=== PATIENT | male | born 1970 | race Caucasian/White ===

== ENCOUNTER 2024-01-04 19:15 | Emergency (ER) | payer BC, SELFPAY ==
[2024-01-04 19:17] VITALS: BP 135/95; BMI 27.5
--- NOTE | 2024-01-04 19:40 | ED.GENMED ---
History of Present Illness
General
Chief Complaint: Skin Surface Trauma
Source: patient
Exam Limitations: none
Time Seen by Provider: 01/04/24 19:30
Travel History
Have you had any contact with someone who has COVID-19?: No
Do you have any symptoms of coronavirus? Fever > 100 degrees, chills, cough, shortness of breath, sore throat, loss of taste or smell, muscle aches, or headache?: No
History of Present Illness
History of Present Illness:
See MDM
Past History
Past History
ED Past Medical History: Hypercholesterolemia and Other (Low back pain, spinal lumbar fusion)
ED Past Surgical History: Orthopedic (Laminectomy and lumbar fusion)
Social History
Tobacco: Non-smoker
Alcohol: Occasional
Personal:
Living: with family
Employment: Employed
Family History
Family History: Other
Phy Exam
Physical Exam
Physical Exam:
See MDM
Course
Orders/Labs/Results
Orders:
Orders
01/04/24 19:38
Finger(s)/Thumb 2 View Lt [CR Finger(s)/thumb Min 2 Vw Lt] Urgent
Comment:
Reason For Exam: distal index finger injury
Indicate Which Finger:: Index Finger
Vital Signs
Initial and Last Documented VS:
Initial Vital Signs
Temp Pulse Resp BP Pulse Ox
98.4 F 85 16 135/95 99
01/04/24 19:17 01/04/24 19:17 01/04/24 19:17 01/04/24 19:17 01/04/24 19:17
Last Documented Vital Signs
Temp Pulse Resp BP Pulse Ox
98.4 F 85 16 135/95 99
01/04/24 19:17 01/04/24 19:17 01/04/24 19:17 01/04/24 19:17 01/04/24 19:17
Procedures
Laceration Closure
Left Distal Radial Second Finger:
Status of Wound: clean
Size of Wound in cm: 0.5 (x2)
Description of Wound Edges: sharp
Preparation: cleaned with Betadine
Revision/Debridement: routine- no revision
Type of Closure: single layer closure and Dermabond-skin glue
MDM/Problems Addressed
Differential Diagnosis Includes:
HPI and MDM Narrative:
53-year-old male presenting with left index finger injury. Patient was using a clean saw and he was trying to saw a dog bone before his dog. It slipped and he stuck his left index finger. Patient is unsure if he cut it or punctured it. He states
his tetanus is up-to-date. Denies numbness or wound.
On exam, patient has 2 superficial lacerations to left index finger distally along radial side. No ligamentous involvement. Sensation intact. Cap refill less than 2 seconds. Dermabond placed. Will obtain x-ray to rule out fracture
Physical exam
General: Well appearing and non-toxic
HEENT: protecting airway
Neck: appears supple
CV: No evidence of cyanosis
Resp: No accessory muscle use
Abd: Non-distended
Extremities: 2 superficial subcentimeter lacerations to left index finger distally along radial side. No ligamentous involvement. Sensation intact. Cap refill less than 2 seconds.
Neuro: alert
Psych: Normal affect
Skin: Intact
Problems Addressed including Acute and Chronic Conditions affecting care:
1. Finger laceration
Acuity: acute
Prognosis: stable
Details: Dermabond placed.
Updates
X-ray negative for fracture. Discussed return precautions
Differential Diagnosis (but not limited to): Laceration, contusion, fracture
Drug therapy (if applicable): OTC meds, please see d/c instruction regarding Rx drugs
Amount and/or Complexity of Data Reviewed
Clinical info obtained from: Patient
External data reviewed: N/A
Labs I independently reviewed (but not limited to): N/A
Radiology: X-ray independently reviewed: No fracture noted on finger x-ray
Pulse Ox: not hypoxic
EKG independently reviewed: N/A
Waiter/Waitress Cafeteria: N/A
Critical Care: N/A
Risk of Complication:
Social Determinants of health: Good social support
Discussed with other providers: N/A
Escalation of Care includes Admit/Obs: After being observed in the Emergency Department, pt stable for discharge.
Occasional wrong word or 'sound a like' substitutions may have occurred due to the inherent limitations of voice recognition software. Read the chart carefully and recognize, using context, where substitutions have occurred.
*Critical Care Note
Total Time (30-74mins, 75-104mins- exclusive of procedures): Not Applicable
ED Attending Note
-
Portions of this chart may have been created with voice recognition software.� Occasional wrong word or��sound alike� substitutions may have occurred due to the inherent limitations of voice recognition software.
Discharge Plan
Departure
Patient Disposition: Home (Routine Discharge)
Date of Disposition: 01/04/24
Time of Disposition: 20:15
Patient with high blood pressure during this ER visit?: No
Discharge Problem:
Finger laceration
Instructions: Laceration Repair With Glue (DC)
Prescriptions:
No Action
atorvastatin 10 MG tablet
10 mg PO QPM
hydrocodone-acetaminophen 1 TABLET tablet
1 tab PO Q4HPRN PRN (Reason: pain) Qty: 10 0RF
diazepam 5 MG tablet
5 mg PO TIDPRN PRN (Reason: Pain, spasm) Qty: 12 0RF
naproxen sodium [Aleve] 220 MG tablet
220 mg PO PRN PRN (Reason: as directed)
hydrocodone-acetaminophen [[place]] 1 EACH tablet
1 ea PO Q6 Qty: 10 0RF
prednisone 50 MG tablet
50 mg PO Daily Qty: 4 0RF
diazepam 5 MG tablet
5 mg PO TIDPRN PRN (Reason: Pain, spasm) Qty: 15 0RF
prednisone 50 MG tablet
50 mg PO DAILY Qty: 5 0RF
cyclobenzaprine 10 MG tablet
10 mg PO TIDPRN PRN (Reason: pain/spasm) Qty: 12 0RF
prednisone 10 mg Tablet
See Rx Instructions .ROUTE .COMPLEX Qty: 30 0RF
Rx Instructions:
Take By Mouth:
40 mg daily x3 days, 30 mg daily x3 days,
20 mg daily x3 days, 10 mg daily x3 days.
prednisone 10 mg Tablet
See Rx Instructions .ROUTE .COMPLEX Qty: 45 0RF
Rx Instructions:
Take By Mouth:
50 mg daily x3 days, 40 mg daily x3 days,
30 mg daily x3 days, 20 mg daily x3 days,
10 mg daily x3 days
diazepam 5 mg tablet
5 mg PO TID PRN (Reason: muscle spasm) Qty: 10 0RF
Activity Restrictions/Additional Instructions:
Your wound was fixed with derma-jeffers. This is a special glue that holds a wound closed similar to stitches. This type of wound closure will eventually fall off by itself and does not need to be removed. You may wash the area very gently, but do not
scrub or pick at the glue. Watch for signs of infection: fever over 100.5�, increasing pain, red streaks around wound, swelling, drainage of pus, or bad smell. If any of these happen, return to ED promptly. All wounds may scar, however you may
reduce the appearance of scarring by avoiding sun exposure to the scar and applying skin moisturizer with spf protection to the scar once the wound is healed.
Interventions
Interventions:
*Risk Screen - Suicide Last Done: 01/04/24 19:17
*Neglect/Abuse Screening Last Done: 01/04/24 19:17
*ED COVID-19 Vaccine History Last Done: 01/04/24 19:17
ED-Skin Assessment Last Done: 01/04/24 19:45
== END 2024-01-04 20:22 | disposition home or self-care (01) ==
LOC: EMR 19:15
PROVIDERS: EMERGENCY PHYSICIAN Student in an Organized Health Care Education/Training Program; FAMILY PHYSICIAN Internal Medicine
DX: S61.211A Laceration without foreign body of left index finger without damage to nail, initial encounter (principal); W27.0XXA Contact with workbench tool, initial encounter
CPT/HCPCS: 99283; 12001; 73140

== ENCOUNTER 2024-02-27 11:30 | Emergency (ER) | payer BC, SELFPAY ==
[2024-02-27 11:38] VITALS: BP 122/77
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
[2024-02-27] MEDS: TORADOL 15 MG IV (13:04)
[2024-02-27] MEDS: VALIUM INJECTION 5 MG IV (13:04)
[2024-02-27] MEDS: DELTASONE 50 MG PO (13:04)
[2024-02-27 13:13] VITALS: BP 121/87
== END 2024-02-27 15:01 | disposition home or self-care (01) ==
LOC: EMR 11:30
PROVIDERS: EMERGENCY PHYSICIAN Emergency Medicine; FAMILY PHYSICIAN Internal Medicine
DX: M54.50 Low back pain, unspecified (principal); E78.00 Pure hypercholesterolemia, unspecified
CPT/HCPCS: 99282; 96374; 96375

== ENCOUNTER 2024-06-14 08:53 | Emergency (ER) | payer BC, SELFPAY ==
[2024-06-14 08:55] VITALS: BP 141/85
--- NOTE | 2024-06-14 09:51 | ED.GENMED ---
History of Present Illness
General
Chief Complaint: Musculo-Skeletal Complaint
Source: patient and spouse
Exam Limitations: none
Time Seen by Provider: 06/14/24 09:05
Nursing documentation reviewed up to this point in time: agreed with
History of Present Illness
History of Present Illness:
54-year-old male past medical history of hyperlipidemia multiple lower extremity injuries in the past presented to the emergency department with left-sided ankle over the past few days felt somewhat sharp sensation. 4 days ago pain gradually
worsening now made worse with ambulation and weightbearing. Denies any numbness weakness redness or warmth
Past History
Past History
ED Past Medical History: Hypercholesterolemia and Other (Low back pain, spinal lumbar fusion)
ED Past Surgical History: Orthopedic (Laminectomy and lumbar fusion)
Social History
Tobacco: Non-smoker
Alcohol: Occasional
Personal:
Living: with family
Employment: Employed
Family History
Family History: Other
Review of Systems
Review of Systems
Allergies reviewed?: Yes
All Other Systems: ROS reviewed and negative except as documented in HPI and ROS
Phy Exam
Physical Exam
Physical Exam:
GENERAL: Alert , in no apparent distress
EYE: pupils equal and reactive
NECK: Supple, no significant adenopathy.
ENT: o/p clr, mmm.
CARDIAC: Regular rate and rhythm .
LUNGS: Clear breath sounds bilaterally, no acute respiratory distress, no wheezes/rales/rhonchi
ABDOMEN: Soft, without focal tenderness, no r/g, no cvat
NEUROLOGICAL: Alert and oriented, no focal neuro deficits
SKIN: Warm and dry, skin intact.
MUSCULOSKELETAL: Mild discomfort to the left ankle at the lateral malleolus mainly to the posterior aspect of this made worse with eversion of the ankle Achilles tendon is intact with normal Aguirre squeeze test. No joint laxity normal distal
pulses no redness or warmth no edema, well perfused.
PSYCH: Normal and appropriate interaction.
Course
Orders/Labs/Results
Orders:
Orders
06/14/24 09:17
Crutches-Treatment ONCE
Ankle, left 3 view CR [CR Ankle - Left Min 3 Views ] Urgent
Comment:
Reason For Exam: left ankle pain
Vital Signs
Initial and Last Documented VS:
Initial Vital Signs
Temp Pulse Resp BP Pulse Ox
98.2 F 83 16 141/85 98
06/14/24 08:55 06/14/24 08:55 06/14/24 08:55 06/14/24 08:55 06/14/24 08:55
Last Documented Vital Signs
Temp Pulse Resp BP Pulse Ox
98.2 F 83 16 141/85 98
06/14/24 08:55 06/14/24 08:55 06/14/24 08:55 06/14/24 08:55 06/14/24 08:55
MDM/Problems Addressed
MDM/Problems Addressed:
54-year-old male presenting to the emergency department today with concerns of left-sided ankle discomfort mainly to the left lateral malleolus and the posterior aspect. She felt a somewhat sharp pain a few days ago has had gradual worsening since
associate with weightbearing and ambulation. Symptoms seem from the description most likely consistent with soft tissue injury or tendon injury. X-ray performed without acute abnormalities. Patient with likely soft tissue injury plan for close
follow-up with orthopedics but otherwise advised for rest ice compression and elevation. Return precautions given.
*Critical Care Note
Total Time (30-74mins, 75-104mins- exclusive of procedures): Not Applicable
ED Attending Note
-
Portions of this chart may have been created with voice recognition software.� Occasional wrong word or��sound alike� substitutions may have occurred due to the inherent limitations of voice recognition software.
Discharge Plan
Departure
Patient Disposition: Home (Routine Discharge)
Date of Disposition: 06/14/24
Time of Disposition: 10:31
Patient with high blood pressure during this ER visit?: No
Condition: Good
Covid-19: Not Applicable
Discharge Problem:
Acute left ankle pain
Instructions: Sprain (DC)
Prescriptions:
No Action
atorvastatin 10 MG tablet
10 mg PO QPM
hydrocodone-acetaminophen 1 TABLET tablet
1 tab PO Q4HPRN PRN (Reason: pain) Qty: 10 0RF
diazepam 5 MG tablet
5 mg PO TIDPRN PRN (Reason: Pain, spasm) Qty: 12 0RF
naproxen sodium [Aleve] 220 MG tablet
220 mg PO PRN PRN (Reason: as directed)
hydrocodone-acetaminophen [[place]] 1 EACH tablet
1 ea PO Q6 Qty: 10 0RF
prednisone 50 MG tablet
50 mg PO Daily Qty: 4 0RF
diazepam 5 MG tablet
5 mg PO TIDPRN PRN (Reason: Pain, spasm) Qty: 15 0RF
prednisone 50 MG tablet
50 mg PO DAILY Qty: 5 0RF
cyclobenzaprine 10 MG tablet
10 mg PO TIDPRN PRN (Reason: pain/spasm) Qty: 12 0RF
prednisone 10 mg Tablet
See Rx Instructions .ROUTE .COMPLEX Qty: 30 0RF
Rx Instructions:
Take By Mouth:
40 mg daily x3 days, 30 mg daily x3 days,
20 mg daily x3 days, 10 mg daily x3 days.
prednisone 10 mg Tablet
See Rx Instructions .ROUTE .COMPLEX Qty: 45 0RF
Rx Instructions:
Take By Mouth:
50 mg daily x3 days, 40 mg daily x3 days,
30 mg daily x3 days, 20 mg daily x3 days,
10 mg daily x3 days
diazepam 5 mg tablet
5 mg PO TID PRN (Reason: muscle spasm) Qty: 10 0RF
prednisone 50 mg tablet
50 mg PO DAILY Qty: 5 0RF
Referrals:
Doroteo Rendon MD [Family Provider] -
Activity Restrictions/Additional Instructions:
You came to the emergency department today with concerns of left-sided ankle discomfort. This seems most consistent with a soft tissue injury potentially tendon injury. The hope is that this improves over time with appropriate rest and gradual
increase in activity. If symptoms are ongoing you should seek physical therapy assessment as well as orthopedic assessment. Return to the emergency department for any worsening, new or concerning symptoms.
Interventions
Interventions:
*Risk Screen - Suicide Last Done: 06/14/24 09:28
*Neglect/Abuse Screening Last Done: 06/14/24 09:28
ED-Musculoskeletal Assessment Last Done: 06/14/24 09:27
Discharge Date and Time
Print Language: [id number]
== END 2024-06-14 10:52 | disposition home or self-care (01) ==
LOC: EMR 08:53
PROVIDERS: EMERGENCY PHYSICIAN Emergency Medicine; FAMILY PHYSICIAN Internal Medicine
DX: M25.572 Pain in left ankle and joints of left foot (principal); E78.00 Pure hypercholesterolemia, unspecified
CPT/HCPCS: 99283; 73610

== ENCOUNTER 2024-09-25 19:14 | Observation (INO) | payer BC, SELFPAY ==
[2024-09-25] VITALS (22 sets, daily range): BP systolic 69–132; BP diastolic 41–80; PULSE 58–137; BMI 26.7
[2024-09-25 12:46] LABS: % Basophils 0.3 % (0-2); % Eosinophils 2.1 % (0-6); % Immature Granulocytes 0.5 % (0-0.5); % Lymphocytes 10.3 % (20.5-51.1); % Monocytes 10.7 % (1.7-9.3); % Neutrophils 76.1 % (42.2-75.2); Absolute Eosinophils 0.2 10^3/uL (0-0.7); Absolute Lymphocytes 0.8 10^3/uL (1.2-3.4); Absolute Monocytes 0.8 10^3/uL (0.1-0.6); Absolute Neutrophils 5.5 10^3/uL (1.4-6.5); Hematocrit 43.1 % (39.0-52.0); Hemoglobin 14.1 g/dL (13.0-18.0); Mean Corp Hgb Conc. 32.7 g/dL (33.0-37.0); Mean Corpuscular Hgb 31.4 pg (27.0-31.0); Mean Platelet Volume 9.5 fL (7.4-10.4); Nucleated Red Blood Cells % 0 % (-); Platelet Count 156 10^3/uL (130-400); Red Blood Cell Count 4.49 10^6/uL (4.70-6.10); Red Cell Dist. Width 12.7 % (11.5-14.5); White Blood Cell Count 7.3 10^3/uL (4.8-10.8)
[2024-09-25] MEDS: NSS 1000 IV ×2 (13:01→22:41)
[2024-09-25 13:03] LABS: ALT (SGPT) 46 U/L (0-50); AST (SGOT) 39 U/L (17-59); Albumin 4.5 g/dl (3.5-5.0); Alkaline Phosphatase 61 U/L (38-126); Blood Urea Nitrogen 22 mg/dl (9-20); Calcium 8.7 mg/dl (8.4-10.2); Carbon Dioxide 28 mmol/L (22-30); Chloride 102 mmol/L (98-107); Estimated Creatinine Clearance 86 ml/min; Glucose 101 mg/dl (70-99); Potassium 4.1 mmol/L (3.5-5.1); Sodium 138 mmol/L (135-145); Total Bilirubin 0.6 mg/dl (0.2-1.3); Total Protein 6.7 g/dl (6.3-8.2); eGFR > 60.00
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
[2024-09-25 15:38] LABS: D-Dimer 0.61 ug/mlFEU (0.00-0.50)
[2024-09-25] MEDS: ZITHROMAX 500 MG PO (18:43)
[2024-09-25] MEDS: TYLENOL 1000 MG PO (18:43)
[2024-09-25] MEDS: ROCEPHIN 1000 MG IV (18:44)
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
[2024-09-25 20:14] LABS: COVID-19 Antigen Negative (Negative)
[2024-09-25] MEDS: MUCINEX 600 MG PO (22:42)
[2024-09-25] MEDS: MOTRIN 400 MG PO (22:42)
[2024-09-25] MEDS: CRESTOR 20 MG PO (22:42)
[2024-09-25] MEDS: HEPARIN 5000 UNITS SC (22:42)
[2024-09-25] MEDS: OCEAN, SALINE MIST 50 SPRAYS NASAL (23:47)
[2024-09-26] VITALS: BMI 29.0
[2024-09-26 02:50] VITALS: BP 115/51
[2024-09-26 07:00] VITALS: BP 116/60
[2024-09-26 08:06] LABS: % Basophils 0.6 % (0-2); % Immature Granulocytes 0.4 % (0-0.5); % Lymphocytes 28.3 % (20.5-51.1); % Monocytes 12.7 % (1.7-9.3); Absolute Eosinophils 0.2 10^3/uL (0-0.7); Absolute Lymphocytes 1.4 10^3/uL (1.2-3.4); Absolute Monocytes 0.6 10^3/uL (0.1-0.6); Absolute Neutrophils 2.6 10^3/uL (1.4-6.5); Hematocrit 38.9 % (39.0-52.0); Hemoglobin 12.7 g/dL (13.0-18.0); Mean Corp Hgb Conc. 32.6 g/dL (33.0-37.0); Mean Corpuscular Hgb 31.6 pg (27.0-31.0); Mean Corpuscular Volume 96.8 fL (80.0-94.0); Mean Platelet Volume 10.3 fL (7.4-10.4); Nucleated Red Blood Cells % 0 % (-); Platelet Count 147 10^3/uL (130-400); Red Blood Cell Count 4.02 10^6/uL (4.70-6.10); Red Cell Dist. Width 12.9 % (11.5-14.5); White Blood Cell Count 4.8 10^3/uL (4.8-10.8)
[2024-09-26 08:25] LABS: ALT (SGPT) 38 U/L (0-50); AST (SGOT) 32 U/L (17-59); Albumin 3.5 g/dl (3.5-5.0); Alkaline Phosphatase 53 U/L (38-126); Blood Urea Nitrogen 17 mg/dl (9-20); Calcium 8.1 mg/dl (8.4-10.2); Carbon Dioxide 26 mmol/L (22-30); Chloride 108 mmol/L (98-107); Estimated Creatinine Clearance 95 ml/min; Glucose 91 mg/dl (70-99); Potassium 4.1 mmol/L (3.5-5.1); Sodium 140 mmol/L (135-145); Total Bilirubin 0.5 mg/dl (0.2-1.3); Total Protein 5.5 g/dl (6.3-8.2); eGFR > 60.00
[2024-09-26] MEDS: THERAGRAN 1 TABLET PO (08:32)
[2024-09-26] MEDS: HEPARIN 5000 UNITS SC (08:32)
[2024-09-26] MEDS: TYLENOL 650 MG PO (08:33)
[2024-09-26] MEDS: NSS 1000 IV (08:34)
--- NOTE | 2024-09-26 11:52 | W.PN.HOSP.TC ---
Today's Communication/Plan
-
Repeat orthostatic vitals, DC if asymptomatic
Transition to oral Augmentin to complete 7 days
Outpatient follow-up with PCP
Assessment / Plan
Assessment / Plan
#Syncopal episode secondary to orthostatic hypotension
#Orthostatic hypotension secondary to viral URI versus pneumonia
-Orthostasis despite 2 L of IV fluids, symptomatically has improved
-Chest x-ray cannot exclude some minor patchy left basilar opacity such as subsegmental atelectasis/pneumonia
-CT PE study without evidence of pulmonary emboli, redemonstrated signs of left lower lobe pneumonia
-As of this morning is asymptomatic with positional changes
-Repeat orthostats today, plan to DC if remains asymptomatic
#Left lower lobe CAP
-Likely bacterial pneumonia, postviral
-Was started on ceftriaxone and azithromycin upon arrival
-No leukocytosis, no fevers, not requiring any oxygen
-Appears nontoxic, likely very low curb 65 score
-Will transition to Augmentin for outpatient therapy, complete 7 days of antibiotic
#Chronic back pain status post spinal fusion/laminectomy
-Continue as needed diazepam
#Hyperlipidemia
-Continue statin
#Obesity
-on saxendra
Full code
DVT prophylaxis�heparin
Regular diet
Anticipated Discharge: Within 24 hours
Subjective/Interval History
-
Date of Service: September 26, 2024
Seen and examined at the bedside. No acute events reported overnight. AFVSS this morning
Orthostatic vital signs were positive. States he symptomatically feels better today. 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
Denies any acute complaints. Asks if he can go home
Objective Data
-
Labs:
Laboratory Results
09/26/24
07:24
WBC 4.8
Hgb 12.7 L
Hct 38.9 L
Plt Count 147
Sodium 140
Potassium 4.1
Chloride 108 H
Carbon Dioxide 26
BUN 17
Creatinine 0.9
Glucose 91
Calcium 8.1 L
Total Bilirubin 0.5
AST 32
ALT 38
Alkaline Phosphatase 53
Vital Signs:
Vital Signs
Temp Pulse Resp BP Pulse Ox
97.9 F 73 18 116/60 96
09/26/24 07:00 09/26/24 07:00 09/26/24 07:00 09/26/24 07:00 09/26/24 07:00
Review of Systems
-
History Source: Patient
All other systems: Reviewed and negative
Physical Exam
-
General: Well Developed, Well Nourished, No Apparent Distress and Comfortable
HEENT: Normocephalic, Atraumatic, Moist Mucous Membranes and Anicteric
Respiratory: Clear to Auscultation and Non Labored Respirations; Negative Wheezes, Rales, Rhonchi or Accessory Resp Muscle Use
Cardiac: Regular Rhythm and S1/S2; Negative Murmur, Rub or Gallop
GI: Soft, Nontender, Nondistended and Normal Bowel Sounds
Musculoskeletal: No Clubbing, No Cyanosis and No Edema
Skin: Warm, Dry and Normal Turgor; Negative Rash
Neuro: AO x 3, Nonfocal/Grossly Intact and Central Nerve's Intact; Negative Tremors
Psych: Calm
Data Reviewed
-
Labs: Labs Reviewed by me and Discussed with Patient
[2024-09-26 12:00] VITALS: BP 130/71
[2024-09-26 12:16] VITALS: BP 124/76; BP 127/76; BP 130/71; PULSE 65; PULSE 72; PULSE 80
--- NOTE | 2024-09-26 13:09 | CM ---
lands resource manager reviewed patient's chart and patient was admitted under OBS, OBS letter explained and signed, patient lives with spouse in a multilevel home, patient is independent with adl's and ambulation, no dme, patient works plan is for discharge
to home to day.
Plan; Home today no needs.
PCP: Dr. Rendon
Pharmacy [facility] on [address] [facility] in [place]
Plan; Home when stable, no needs.
--- NOTE | 2024-09-26 15:49 | W.DCSUMMARY ---
Discharge Summary
Discharge Data
Date of Admission: 09/25/24
Date of Discharge: 09/26/24
-
Pending Results: No
Hospital Course
54-year-old male with chronic back pain s/p laminectomy, hyperlipidemia, marijuana use scented to the hospital after syncopal episode at home. Had been dealing with upper respiratory symptoms for 1 week prior to arrival to the ED. Stood up and
developed lightheadedness with syncope while using the restroom. Denied head strike. Upon arrival orthostatic vitals were positive and he was symptomatic. Chest x-ray showed left basilar opacity. CT chest redemonstrated opacification in the left
lower lobe with radiographic findings consistent with pneumonia. No fevers or leukocytosis. Did not require supplemental oxygen during hospital stay. Was at high risk for developing bacterial pneumonia due to recent URI. Risk benefits discussion
had with patient and decision was made to treat with antibiotics. He received IV ceftriaxone and azithromycin here. Transition to Augmentin to complete 7 days of discharge. He received 2 L of IV fluids while in the ED, orthostatic vital signs
negative on day 2 of hospitalization. Symptomatically improved, patient asked to go home. Recommended follow-up appointment with family physician within 1 to 2 weeks of discharge. Advised fall precautions with positional change. Provided
benzonatate prescription for cough suppression.
Discharge Plan
-
Patient Disposition: Home (Routine Discharge)
Discharge Diagnosis/Procedures: Syncope from orthostatic hypotension
Pneumonia
Recent viral URI
Condition: Good
Diet: No restrictions
Additional Diets: Make sure to drink plenty of water, goal >64 ounces daily
Activity: As tolerated
Driving Restrictions: No driving for 24 hours
Bathing Restrictions: None
Activity Restrictions/Additional Instructions:
Schedule follow-up appointment with your family doctor, should be seen within 1 to 2 weeks of discharge
When changing positions (laying down to seated, seated to standing), start slow and monitor for symptoms of lightheadedness, use caution with quick positional changes
If you develop high-grade fevers (temperature >102 degrees), trouble breathing then come back to the emergency department for further assessment.
Instructions: Orthostatic hypotension
Referrals:
Doroteo Rendon MD [Family Provider] -
Additional Discharge Medication Instructions: Continue Augmentin 875-125 mg tablet every 12 hours for 6 more days after discharge
Use benzonatate 200 mg as needed up to 3 times daily for cough suppression
Prescriptions:
New
benzonatate 100 mg Capsule
200 mg PO TIDPRN PRN (Reason: cough) 7 Days Qty: 20 0RF
amoxicillin-pot clavulanate 875-125 mg tablet
1 tab PO Q12H 6 Days Qty: 12 0RF
Continued
pseudoephedrine-guaifenesin [Mucinex D] 60-600 mg Tablet Extended Release 12 Hr
1 tab PO BIDPRN PRN (Reason: cold symptoms)
therapeutic multivitamin Tablet
1 tab PO DAILY
azelastine 137 mcg (0.1 %) [place],Non-Aerosol
1 spray INTRANASAL BIDPRN PRN (Reason: allergies)
diazepam 10 mg Tablet
10 mg PO DAILYPRN PRN (Reason: back issues)
rosuvastatin 20 mg Tablet
20 mg PO HS
Saxenda 3 mg/0.5 mL (18 mg/3 mL) Pen Injector
1.2 mg SC DAILY
Discharge Orders:
Discharge Patient (As Directed); Ordered 09/26/24
Ordered By: Aleks Delarosa
Discharge Date and Time
Discharge Date/Time: 09/26/24 15:35
Print Language: BAHAMIAN
== END 2024-09-26 15:35 | disposition home or self-care (01) ==
LOC: 4 WEST ACU 19:14
PROVIDERS: Registered Nurse; ADMITTING PHYSICIAN Hospitalist; ATTENDING PHYSICIAN Internal Medicine; EMERGENCY PHYSICIAN Emergency Medicine; FAMILY PHYSICIAN Internal Medicine
DX: I95.1 Orthostatic hypotension (principal); J18.9 Pneumonia, unspecified organism; R05.3 Chronic cough; G89.29 Other chronic pain; R42 Dizziness and giddiness; E78.49 Other hyperlipidemia; E78.00 Pure hypercholesterolemia, unspecified; M54.9 Dorsalgia, unspecified; M51.34 Other intervertebral disc degeneration, thoracic region; M41.84 Other forms of scoliosis, thoracic region; E66.9 Obesity, unspecified; W18.2XXA Fall in (into) shower or empty bathtub, initial encounter; Y93.89 Activity, other specified; Y92.002 Bathroom of unspecified non-institutional (private) residence as the place of occurrence of the external cause; R41.0 Disorientation, unspecified; R79.89 Other specified abnormal findings of blood chemistry; Z88.6 Allergy status to analgesic agent; Z79.85 Long-term (current) use of injectable non-insulin antidiabetic drugs; Z98.1 Arthrodesis status; Z68.29 Body mass index [BMI] 29.0-29.9, adult; Z11.52 Encounter for screening for COVID-19
CPT/HCPCS: 71046; 71275; 80053; 85025; 85379; 87502; 87811; 93005; 96361; 96374; 99285; G0378; Q9967

== ENCOUNTER → 2024-10-16 13:56 | Outpatient (REF) | payer BC, SELFPAY | LOC: HWRAD 13:56 | PROVIDERS: ATTENDING PHYSICIAN Internal Medicine | DX: J18.9 Pneumonia, unspecified organism (principal) | CPT/HCPCS: 71046 ==

== ENCOUNTER → 2024-10-20 09:26 | Outpatient (REF) | payer BC, SELFPAY | LOC: RCS 09:26 | PROVIDERS: ATTENDING PHYSICIAN Nurse Practitioner; FAMILY PHYSICIAN Internal Medicine; REFERRING PHYSICIAN Student in an Organized Health Care Education/Training Program | DX: R42 Dizziness and giddiness (principal) | CPT/HCPCS: 93225; 93226 ==

== ENCOUNTER → 2024-10-29 15:48 | Outpatient (REF) | payer BC, SELFPAY | LOC: HWRCS 15:48 | PROVIDERS: ATTENDING PHYSICIAN Nurse Practitioner; FAMILY PHYSICIAN Internal Medicine | DX: R42 Dizziness and giddiness (principal) | CPT/HCPCS: 93306 ==

== ENCOUNTER 2025-03-09 09:53 | Emergency (ER) | payer BC, SELFPAY ==
[2025-03-09 09:59] VITALS: BP 140/86
--- NOTE | 2025-03-09 11:00 | ED.GENMED ---
History of Present Illness
General
Chief Complaint: Back Pain
Time Seen by Provider: 03/09/25 10:23
History of Present Illness
History of Present Illness:
55-year-old male presents to the emergency department for evaluation of right-sided low back pain. Has a history of recurrent low back issues, prior history of L4-L5 fusion surgery. States that whenever he has an injury like this he typically
receives steroids, NSAIDs, and diazepam with good results. Denies any loss of bladder or bowel function. No lower extremity paresthesias
Past History
Past History
ED Past Medical History: Hypercholesterolemia and Other (Low back pain, spinal lumbar fusion)
ED Past Surgical History: Orthopedic (Laminectomy and lumbar fusion)
Social History
Tobacco: Non-smoker
Alcohol: Occasional
Personal:
Living: with family
Employment: Employed
Family History
Family History: Other
Review of Systems
Review of Systems
Allergies reviewed?: Yes
All Other Systems: ROS reviewed and negative except as documented in HPI and ROS
Phy Exam
Physical Exam
Physical Exam:
GEN: Well appearing, NAD, WDWN
HEENT: Oral mucosa moist, no scleral icterus
Cardiac: Regular rate
Lung: No respiratory distress, no tachypnea
MSK: No gross deformity or injuries. Right lower extremity strength is normal in all devi. Right hip range of motion intact in all devi. Normal sensation
Skin: Good color, no pallor or jaundice, no rashes
Neuro: AO x3, moves all extremities freely
Psych: Calm, cooperative
Course
Orders/Labs/Results
Orders:
Orders
03/09/25 10:46
Dexamethasone Sod Phosphate [Decadron] 10 mg IV NOW STA
Ketorolac [Toradol] 15 mg IV NOW STA
diazePAM [Valium Injection] 5 mg IV NOW STA
Vital Signs
Initial and Last Documented VS:
Initial Vital Signs
Temp Pulse Resp BP Pulse Ox
98.4 F 70 18 140/86 99
03/09/25 09:59 03/09/25 09:59 03/09/25 09:59 03/09/25 09:59 03/09/25 09:59
Last Documented Vital Signs
Temp Pulse Resp BP Pulse Ox
98.4 F 78 18 138/74 99
03/09/25 09:59 03/09/25 12:45 03/09/25 09:59 03/09/25 12:45 03/09/25 09:59
MDM/Problems Addressed
MDM/Problems Addressed:
Patient is without any signs or symptoms of emergent spinal compromise. His symptoms did improve with treatment in the ED which has worked well for him in the past. Will provide a course of steroid medications at discharge, encouraged pain
medicine follow-up
*Critical Care Note
Total Time (30-74mins, 75-104mins- exclusive of procedures): Not Applicable
ED Attending Note
-
Portions of this chart may have been created with voice recognition software.� Occasional wrong word or��sound alike� substitutions may have occurred due to the inherent limitations of voice recognition software.
Discharge Plan
Departure
Patient Disposition: Home (Routine Discharge)
Date of Disposition: 03/09/25
Time of Disposition: 12:14
Patient with high blood pressure during this ER visit?: No
Discharge Problem:
Low back pain
Instructions: Low Back Pain (DC)
Prescriptions:
New
methylprednisolone [Medrol ([place])] 4 mg tablets,dose pack
See Rx Instructions .ROUTE .COMPLEX Qty: 21 0RF
Rx Instructions:
orally per package directions
No Action
pseudoephedrine-guaifenesin [Mucinex D] 60-600 mg Tablet Extended Release 12 Hr
1 tab PO BIDPRN PRN (Reason: cold symptoms)
therapeutic multivitamin Tablet
1 tab PO DAILY
azelastine 137 mcg (0.1 %) [place],Non-Aerosol
1 spray INTRANASAL BIDPRN PRN (Reason: allergies)
diazepam 10 mg Tablet
10 mg PO DAILYPRN PRN (Reason: back issues)
rosuvastatin 20 mg Tablet
20 mg PO HS
Saxenda 3 mg/0.5 mL (18 mg/3 mL) Pen Injector
1.2 mg SC DAILY
benzonatate 100 mg Capsule
200 mg PO TIDPRN PRN (Reason: cough) 7 Days Qty: 20 0RF
amoxicillin-pot clavulanate 875-125 mg tablet
1 tab PO Q12H 6 Days Qty: 12 0RF
Referrals:
Doroteo Rendon MD [Family Provider] -
Interventions
Interventions:
*Risk Screen - Suicide Last Done: 03/09/25 09:59
*General Assessment Last Done: 03/09/25 09:59
*Neglect/Abuse Screening Last Done: 03/09/25 09:59
*ED- Fall Risk Assessment Last Done: 03/09/25 11:08
*ED COVID-19 Vaccine History Last Done: 03/09/25 11:08
*Nursing Disposition Last Done: 03/09/25 12:45
ED-Musculoskeletal Assessment Last Done: 03/09/25 11:09
Discharge Date and Time
Discharge Date/Time: 03/09/25 12:46
Print Language: SERBIAN
[2025-03-09] MEDS: DECADRON 10 MG IV (11:07)
[2025-03-09] MEDS: TORADOL 15 MG IV (11:07)
[2025-03-09 11:08] VITALS: BMI 28.1
[2025-03-09] MEDS: VALIUM INJECTION 5 MG IV (11:08)
[2025-03-09 12:45] VITALS: BP 138/74
== END 2025-03-09 12:46 | disposition home or self-care (01) ==
LOC: EMR 09:53
PROVIDERS: EMERGENCY PHYSICIAN Emergency Medicine; FAMILY PHYSICIAN Internal Medicine
DX: M54.50 Low back pain, unspecified (principal); E78.00 Pure hypercholesterolemia, unspecified; Z98.1 Arthrodesis status
CPT/HCPCS: 96374; 96375; 99284

== ENCOUNTER 2025-09-06 09:31 | Emergency (ER) | payer BC, SELFPAY ==
[2025-09-06 09:34] VITALS: BP 139/88
[2025-09-06 10:09] VITALS: BMI 29.1
[2025-09-06 10:14] VITALS: BP 137/79
--- NOTE | 2025-09-06 10:34 | EDRN ---
Khadijah PRAKASH in to see pt.
[2025-09-06] MEDS: TORADOL 15 MG IV (10:58)
[2025-09-06] MEDS: VALIUM INJECTION 5 MG IV (10:59)
[2025-09-06] MEDS: DECADRON 10 MG IV (11:01)
[2025-09-06 11:03] VITALS: BP 127/88
[2025-09-06 11:55] VITALS: BP 127/81
--- NOTE | 2025-09-06 12:57 | ED.GENMED ---
History of Present Illness
General
Chief Complaint: Back Pain
Time Seen by Provider: 09/06/25 10:16
History of Present Illness
History of Present Illness:
see MDM
Past History
Past History
ED Past Medical History: Hypercholesterolemia and Other (Low back pain, spinal lumbar fusion)
ED Past Surgical History: Orthopedic (Laminectomy and lumbar fusion)
Social History
Tobacco: Non-smoker
Alcohol: Occasional
Personal:
Living: with family
Employment: Employed
Family History
Family History: Other
Phy Exam
Physical Exam
Physical Exam:
GENERAL: Alert , in no apparent distress, comfortable at rest
CARDIAC: Regular rate and rhythm, no edema
LUNGS: Clear breath sounds bilaterally, no acute respiratory distress, no wheezes/rales/rhonchi
ABDOMEN: Soft, without focal tenderness, no r/g, no cvat, normal bowel sounds, nondistended
NEUROLOGICAL: Alert and oriented, no focal neuro deficits, CN intact, 5/5 strength, sensation intact, ambulation intact
SKIN: Warm and dry, no rash
MUSCULOSKELETAL: No edema, well perfused. Normal inspection of the l right hip and leg
Mild tenderness to the right PSIS
Able to flex and rotate without significant discomfort
Back: No midline tenderness, mild right paraspinal and lateral lumbar tenderness, no muscle spasms palpated
negative straight leg raise Bilaterally
PSYCH: Normal and appropriate interaction.
Course
Orders/Labs/Results
Orders:
Orders
09/06/25 10:36
Dexamethasone Sod Phosphate [Decadron] 10 mg IV NOW STA
Ketorolac [Toradol] 15 mg IV NOW STA
diazePAM [Valium Injection] 5 mg IV NOW STA
Vital Signs
Initial and Last Documented VS:
Initial Vital Signs
Temp Pulse Resp BP Pulse Ox
37.2 C 80 16 139/88 98
09/06/25 09:34 09/06/25 09:34 09/06/25 09:34 09/06/25 09:34 09/06/25 09:34
Last Documented Vital Signs
Temp Pulse Resp BP Pulse Ox
37.2 C 61 16 127/81 97
09/06/25 09:34 09/06/25 11:55 09/06/25 11:55 09/06/25 11:55 09/06/25 13:08
MDM/Problems Addressed
Differential Diagnosis Includes:
see MDM
MDM/Problems Addressed:
Note:
CHIEF COMPLAINT(S)
Acute onset of severe low back pain following a sneeze.
HISTORY OF PRESENT ILLNESS
The patient is a 55 y/o male who reports experiencing an acute onset of sharp pain in the lower back following a sneeze at approximately 8:30 AM today. The pain is localized above the right buttock, extending to the side of the back, near the hip
area. The patient describes the formation of a muscle knot. This episode is similar to previous occurrences for which the patient has sought medical attention. The patient has a history of being treated successfully with intravenous corticosteroids,
ketorolac (as Toradol), and diazepam (as Valium), followed by an oral tapering regimen of steroids. The patient reports being last treated for a similar issue in February of this year. The patient experiences difficulty sitting due to facet joint
discomfort and tends to either lie down or stand instead. He engages in regular physical activity, including Pilates. The patient denies incontinence of urine or feces.
h/o previous back surgery due to trauma years ago
here many times over the years
PDMP consulted, no recent rx.
PAST MEDICAL AND SURIGICAL HISTORY
The patient has a significant history of a spinal fusion performed after a stress fracture in the lower back. Additionally, the patient sustained an injury in the past where the foot was broken off, which was surgically repaired.
SOCIAL DETERMINANTS AFFECTING HEALTH
The patient was accompanied by his spouse, who assisted with transportation to the medical facility.
PHYSICAL EXAM
-see above
Nursing notes reviewed and vital signs reviewed.
PLAN
Administer intravenous corticosteroids, ketorolac, and diazepam for acute symptom relief, following the patients previous treatment plan. Prescribe an oral tapering regimen of steroids to follow the initial intravenous treatment. The patient is
expected to improve by Saturday with this intervention.
DIFFERENTIAL DIAGNOSIS
The Differential Diagnosis includes, in no particular order and is not limited to:
1. Lumbar disc herniation
2. Facet joint syndrome
3. Muscle spasm
4. Sacroiliac joint dysfunction
5. Lumbosacral radiculopathy
6. Spinal stenosis
7. Spondylolisthesis
8. Vertebral compression fracture
9. Acute lumbar strain/sprain
10. Ankylosing spondylitis
CARE-UPDATE
55-year-old male with history of chronic back pain, previous back surgery that he sneezed and felt back 'go out. 'Patient has no radicular symptoms, no cauda equina symptoms. On exam he is appearing comfortable and can change positions but has
some discomfort, he has strength and sensation intact. He is not incontinent. Patient seems quite adamant about his treatment plan being IV medication, I did review his PDMP and noted it was not concerning for abuse,
09/06/25 - 11:43
Patient reports improvement in condition. Discharge arrangements confirmed with spouse providing transportation. steroid pack prescribed as part of management plan. No additional needs or concerns expressed by the patient at this time. Expressed
gratitude for care received.
*Pulse Oximetry
SaO2: 97
Oxygen Mode of Delivery: Room air
Patient hypoxic: no (55)
*Critical Care Note
Total Time (30-74mins, 75-104mins- exclusive of procedures): Not Applicable
ED Attending Note
-
Portions of this chart may have been created with voice recognition software.� Occasional wrong word or��sound alike� substitutions may have occurred due to the inherent limitations of voice recognition software.
Discharge Plan
Departure
Patient Disposition: Home (Routine Discharge)
Date of Disposition: 09/06/25
Time of Disposition: 11:40
Patient with high blood pressure during this ER visit?: No
Condition: Fair
Covid-19: Not Applicable
Discharge Problem:
Acute lumbar back pain
Instructions: Low Back Pain (DC)
Prescriptions:
New
methylprednisolone [Medrol ([place])] 4 mg tablets,dose pack
See Rx Instructions .ROUTE .COMPLEX Qty: 21 0RF
Rx Instructions:
for 6 days
No Action
pseudoephedrine-guaifenesin [Mucinex D] 60-600 mg Tablet Extended Release 12 Hr
1 tab PO BIDPRN PRN (Reason: cold symptoms)
therapeutic multivitamin Tablet
1 tab PO DAILY
azelastine 137 mcg (0.1 %) [place],Non-Aerosol
1 spray INTRANASAL BIDPRN PRN (Reason: allergies)
diazepam 10 mg Tablet
10 mg PO DAILYPRN PRN (Reason: back issues)
rosuvastatin 20 mg Tablet
20 mg PO HS
Saxenda 3 mg/0.5 mL (18 mg/3 mL) Pen Injector
1.2 mg SC DAILY
benzonatate 100 mg Capsule
200 mg PO TIDPRN PRN (Reason: cough) 7 Days Qty: 20 0RF
amoxicillin-pot clavulanate 875-125 mg tablet
1 tab PO Q12H 6 Days Qty: 12 0RF
methylprednisolone [Medrol ([place])] 4 mg tablets,dose pack
See Rx Instructions .ROUTE .COMPLEX Qty: 21 0RF
Rx Instructions:
orally per package directions
Referrals:
Doroteo Rendon MD [Family Provider, Internal Medicine] - Follow up in 5-7 days
Activity Restrictions/Additional Instructions:
START THE STEROID PACK TOMORROW AND TAKE DIRECTED
USE MOTRIN AND TYLENOL FOR PAIN NEEDED
RETURN FOR ANY CONCERNS, LEG WEAKNESS/NUMBNESS, INCONTINENCE, ETC.
Interventions
Interventions:
*Risk Screen - Suicide Last Done: 09/06/25 09:35
*General Assessment Last Done: 09/06/25 10:10
*Neglect/Abuse Screening Last Done: 09/06/25 09:35
*ED- Fall Risk Assessment Last Done: 09/06/25 10:10
*ED COVID-19 Vaccine History Last Done: 09/06/25 10:10
*ED Influenza Vaccine History Last Done: 09/06/25 10:10
*Nursing Disposition Last Done: 09/06/25 11:57
ED-Musculoskeletal Assessment Last Done: 09/06/25 10:10
Discharge Date and Time
Discharge Date/Time: 09/06/25 11:57
Print Language: LITHUANIAN
== END 2025-09-06 11:57 | disposition home or self-care (01) ==
LOC: EMR 09:31
PROVIDERS: EMERGENCY PHYSICIAN Emergency Medicine; FAMILY PHYSICIAN Internal Medicine
DX: M54.50 Low back pain, unspecified (principal); E78.00 Pure hypercholesterolemia, unspecified; Z98.1 Arthrodesis status
CPT/HCPCS: 96374; 96375; 99284